=== PATIENT | male | born 1970 | race Caucasian/White ===

== ENCOUNTER 2023-01-15 14:18 | Emergency (ER) | payer OTHER ==
[~2023-01-15] VITALS: Ht 182.9 cm; Wt 90.9 kg
[~2023-01-15 14:18] MED LIST: DIVA-112 PO; DOXY-469 PO; HYDR25TA2 PO; HYDR25TA84 PO; LOSA-382 PO; PANT-31 PO; PERA4TAB PO; PHENY100 PO; SIMV-261 PO
[2023-01-15 15:15] VITALS: BP 154/98
== END 2023-01-15 15:35 | disposition home or self-care (01) ==
LOC: EMS 14:23
DX: G40.909 Epilepsy, unspecified, not intractable, without status epilepticus (principal); I10 Essential (primary) hypertension; E78.00 Pure hypercholesterolemia, unspecified; Z88.2 Allergy status to sulfonamides
CPT/HCPCS: 99283

== ENCOUNTER 2023-01-15 17:50 | Emergency (ER) | payer OTHER ==
[~2023-01-15 17:50] MED LIST changes: +PHEN100C10 PO; -PHENY100 PO
== END 2023-01-15 18:37 | disposition left against medical advice (07) ==
LOC: EMS 18:00
DX: G40.909 Epilepsy, unspecified, not intractable, without status epilepticus (principal); E78.00 Pure hypercholesterolemia, unspecified; I10 Essential (primary) hypertension; Z88.2 Allergy status to sulfonamides
CPT/HCPCS: 99283; Z7502